=== PATIENT | male | born 1985 | race Caucasian/White ===

== ENCOUNTER 2016-11-24 10:30 | Emergency (ER) | payer OTHER ==
--- NOTE | 2016-11-24 14:36 | ED CLINICAL REPORT ---
Clinical Report - Physicians/Mid Levels [facility] [address] [place] [address] 11/24/2016 10:30 Patient: MARCO ANTONIO CERDA Time Seen: 1040; initial patient contact. Arrived- By private vehicle. In custody. Historian- patient. Referred by patient's family. HISTORY OF PRESENT ILLNESS Chief Complaint: MEDICAL CLEARANCE. This started today. Has not been sleeping. Has not been depressed. No anger, delusions, suicidal thoughts, self-injury inflicted or hallucinations. The symptoms are described as moderate. No injury is present. Additional history - patient locked himself in the bathroom. 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 Similar symptoms previously: None. Recent medical care: Not recently seen/assessed. REVIEW OF SYSTEMS No headache or skin rash. All systems otherwise negative, except as recorded above. PAST HISTORY See nurses notes. Allergies: No Known Drug Allergy. SOCIAL HISTORY Never smoker. History of drug use. No alcohol use. Has social support. Has place to stay. ADDITIONAL NOTES The nursing notes have been reviewed. PHYSICAL EXAM Vital Signs: 11/24/2016 10:35 BP: 143/93. HR: 115. RR: 16. O2 saturation: 98%. Temp: 97.4 F. Oxygen saturation normal. Appearance: Alert. No acute distress. Appearance is normal. (calm, cooperative, pleasant, well groomed). Eyes: Pupils equal, round and reactive to light. Neck: Normal inspection. Neck supple. CVS: Normal heart rate and rhythm. Heart sounds normal. Respiratory: Breath sounds normal. Chest nontender. Abdomen: Soft and nontender. Back: No tenderness. Skin: Skin warm and dry. Normal skin color. Normal skin turgor. Extremities: Extremities exhibit normal ROM. No lower extremity edema. Psych / Neuro: Oriented X 3. Mood and affect normal. Speech normal. Cognition normal. Thought process and content normal. Insight and judgement normal. Cranial nerves normal (as tested). No cerebellar findings. No motor deficit. LABS, X-RAYS, AND EKG Laboratory Tests: UA-Culture if indicated: (DANIEL: 11/24/2016 10:48) ( MsgRcvd 11/24/2016 11:13) Final results Test Result Flag Units (Reference) URINE COLOR YELLOW URINE APPEARANCE CLEAR URINE GLUCOSE NEGATIVE (NEGATIVE) URINE BILIRUBIN NEGATIVE (NEGATIVE) URINE KETONE NEGATIVE (NEGATIVE) URINE SPECIFIC GRAVITY 1.020 (1.010-1.030) URINE PH 6.0 (5.0-8.0) URINE PROTEIN NEGATIVE (NEGATIVE) URINE UROBILINOGEN 0.2 EU/dL (0.2-1.0) URINE NITRITE NEGATIVE (NEGATIVE) URINE BLOOD NEGATIVE (NEGATIVE) URINE LEUK ESTERASE NEGATIVE (NEGATIVE) URINE RBC NONE SEEN rbc/hpf (0-1) URINE WBC NONE SEEN wbc/hpf (0-1) URINE EPITHELIAL CELLS RARE EPI/hpf (0-5) URINE BACTERIA NONE SEEN (NONE SEEN) URINE COMMENT CULT NOT INDICATED 1+ MUCOUS STRANDSURINE CULTURES ARE SET-UP BASED ON THE FOLLOWING CRITERIA:POSITIVE NITRITEPOSITIVE LEUKOCYTE ESTERASEGREATER THAN 10 WHITE BLOOD CELLSMODERATE (2+) OR GREATER BACTERIA CBC w Diff: (DANIEL: 11/24/2016 10:55) ( [facility] 11/24/2016 11:14) Final results Test Result Flag Units (Reference) WHITE BLOOD COUNT 9.8 K/uL (4.5-11.5) RED BLOOD COUNT 5.02 M/uL (4.50-5.90) HEMOGLOBIN 14.4 gm/dL (13.5-17.5) HEMATOCRIT 43.7 % (41.0-53.0) MEAN CELL VOLUME 87 fL (80-100) MEAN CORPUSCULAR HGB 29 pg (26-34) MEAN CORPUSCULAR HGB CONC 33 g/dL (31-37) RED CELL DISTRIBUTION WIDTH 14.3 % (11.6-14.8) PLATELET COUNT 431 H K/uL (150-400) NEUTROPHIL % 57.0 % (50-75) LYMPH % 34.7 % (25-40) MONO % 5.4 % (3-14) EOSINOPHIL % 2.0 % (0-4) BASOPHIL % 0.9 % (0-2) Urine Drug Screen: (DANIEL: 11/24/2016 10:48) ( [facility] 11/24/2016 11:12) Final results Test Result Flag Units (Reference) AMPHETAMINE/METHAMPHETAMINE NEGATIVE (NEGATIVE) BARBITURATE NEGATIVE (NEGATIVE) BENZODIAZEPINE NEGATIVE (NEGATIVE) CANNABINOID NEGATIVE (NEGATIVE) COCAINE NEGATIVE (NEGATIVE) ECSTASY POSITIVE H (NEGATIVE) METHADONE NEGATIVE (NEGATIVE) OPIATE NEGATIVE (NEGATIVE) The urine drug screen is a qualitative screening test fordrug overdose and abuse. All screen results should beconsidered as presumptive.Drugs screened for are as follows:BenzodiazepinesCocaineAmphetamines/MetamphetaminesTHC (Tetrahydrocannabinol)OpiatesBarbituratesEcstasyMethadonePositive results are unconfirmed. For confirmation, notifythe lab for the specimen to be sent to the reference lab.All confirmations must be performed by a differentmethodology.The ingestion of natural herbal and plant productscontaining Ephedra/Ephedra metabolites can produce in urineone or more substances capable of cross reacting withamphetamine/methamphetamine immunoassays. These testsprovide a preliminary result only. A more specificalternative chemical method must be used to obtain aconfirmed analytical result. Salicylate Level: (DANIEL: 11/24/2016 10:55) ( MsgRcvd 11/24/2016 11:27) Final results Test Result Flag Units (Reference) SALICYLATE <2.8 L mg/dL (2.8-20) CMP: (DANIEL: 11/24/2016 10:55) ( MsgRcvd 11/24/2016 11:36) Final results Test Result Flag Units (Reference) GLUCOSE 93 mg/dL (70-110) BUN 16 mg/dL (7-18) CREATININE 0.9 mg/dL (0.6-1.3) Estimated GFR >60 mL/min Estimated GFR- >60 mL/min Note: Persistent reduction over 3 months in eGFR<60 mL/min/1.73 m2 defines CKD. Patients with eGFR values>=60 mL/min/1.73 m2 may also have CKD if evidence ofpersistent proteinuria. Additional information may be foundat www.kidney.org. SODIUM 140 mmol/L (136-145) POTASSIUM 4.2 mmol/L (3.5-5.1) CHLORIDE 105 mmol/L (98-107) CARBON DIOXIDE 29 mmol/L (21-32) CALCIUM 8.9 mg/dL (8.5-10.1) TOTAL PROTEIN 7.6 g/dL (6.4-8.2) ALBUMIN 3.7 g/dL (3.3-5.0) BILIRUBIN, TOTAL 0.2 mg/dL (0.0-1.0) ALKALINE PHOSPHATASE 100 U/L (46-116) AST (SGOT) 14 L U/L (15-37) ALT (SGPT) 27 U/L (12-78) ACETAMINOPHEN < 2 L ug/mL (10-30) . PROGRESS AND PROCEDURES Course of Care: the patient is a pleasant 31-year-old male presenting for evaluation of medical clearance. Patient reports no suicidal ideation homicidal ideation or delusions/hallucinations. Patient is sitting in the bed in no acute distress. Patient does not appear to be a danger to himself or others. Collateral information was obtained from the police department. Apparently patient had threatened himself per family members. This is concerning and patient will need to be monitored in the hospital and have the crisis team come out to see him. Laboratory studies for medical clearance has been obtained. Patient is agreeable to the treatment and plan. Patient was offered food and drink while here in the emergency department. Work up has also been ordered. Patient is tolerating by mouth well. No other concerns noted at this time. patient cleared from a medical standpoint from the emergency department. Patient continues to be resting in bed in no acute distress. Crisis counselor had evaluated the patient and felt in patient treatment would be the best option. Patient is currently voluntary. Patient however was not pleased with the result of the evaluation however explain to the patient this was all for his own benefit and help. Patient is agreeable to the treatment plan. Prior to patient's departure from the emergency department he was noted to be resting in bed in no acute distress. Informed written consent obtained for transport. Discussed the patient is workup here in the emergency department including diagnosis, and plan of care. Patient is stable for psychiatric treatment and evaluation. Disposition: Discharged. Condition: good. CLINICAL IMPRESSION Adjustment disorder with depressed mood. Suicidal ideation (acute). (Electronically signed by Ilan Anderson Dr. 11/26/2016 4:48)
--- NOTE | 2016-11-24 14:37 | ED ORDER SUMMARY ---
..... Patient: MARCO ANTONIO CERDA OrderSheet [facility] VisitID: [id number] [place] [address] 31y, M Registration Date/Time: 11/24/2016 ORDER SHEET Weight: 77.1 kg (stated) Allergies: No Known Drug Allergy GENERAL ORDERS: CBC w Diff Urgent (10:51 11/24/2016 Maria Luisa Madison) (Ack 10:52 KHoerner) (10:57 KHoerner) CMP Urgent (10:51 11/24/2016 Maria Luisa Madison) (Ack 10:52 LAURENoerner) (10:57 KHoerner) UA-Culture if indicated Urgent (10:51 11/24/2016 Maria Luisa Madison) (Ack 10:52 KHoerner) (10:54 DMamychal R.N.) Urine Drug Screen Urgent (10:51 11/24/2016 Maria Luisa Madison) (Ack 10:52 KHoerner) (10:55 DMamychal R.N.) Salicylate Level Urgent (10:51 11/24/2016 Maria Luisa Madison) (Ack 10:52 KHoerner) (10:57 KHoerner) Acetaminophen Level Urgent (10:51 11/24/2016 Maria Luisa Madison) (Ack 10:52 LAURENoerner) (10:57 KHoerner) Breathalyzer (10:11/24/2016 Maria Luisa Madison) (10:52 KHoerner) MEDICATION ORDERS: IV FLUIDS: ORDER SHEET NOTES: [Electronically signed by Vicky Rodriguez R.N. (18:14 11/24/2016)] [Electronically signed by Ilan Anderson Dr. (04:48 11/26/2016)] [Electronically locked/signed by Vicky Rodriguez R.N. (18:14 11/24/2016)]
--- NOTE | 2016-11-24 14:37 | ED NURSING NOTES ---
Clinical Report - Nurses [facility] [address] [place] [address] 11/24/2016 10:30 [id number] TRI[facility] Triage time 10:35. Acuity: LEVEL 4. Chief Complaint: DEPRESSION, ANXIETY and BIZARRE BEHAVIOR and (withdrawing from Meth). Alert. --10:41 Vicky Rodriguez R.N. 10:35 11/24/16. BP: 143/93. HR: 115. RR: 16. O2 saturation: 98%. Temp: 97.4 F. Pain level now 0/10. --10:41 Vicky Rodriguez R.N. Weight: 77.1 kg stated. Height/Length: 71 inches Per Patient. BMI: 23.7. --10:41 Vicky Rodriguez R.N. Allergies No Known Drug Allergy. --13:03 Damaris Segal R.N. History Historian: patient. Arrived in police custody. Primary physician (none). This is a recurrent problem. ( Brought by police as he barricaded himself in the bathroom as his dad told him he was calling police. Pt said he did it because he didn't want to go to long-term). 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 PAST MEDICAL HX: Immunizations: status is unknown. SOCIAL HX: Never smoker. Occasional alcohol use. History of drug use: methamphetamines. (stopped taking Suboxone). --10:41 Vicky Rodriguez R.N. PROBLEMS: MRSA Infection. Cellulitis. Dental Pain. Pharyngitis. Tonsillitis. Substance Abuse. Anxiety Reaction. Narcotic Withdrawal. Ankylosing Spondylitis. Rheumatoid Arthritis. Immunizations. --13:05 Damaris Segal R.N. ADDITIONAL SURGERIES: Tonsillectomy. --13:05 Damaris Segal R.N. PHYSICAL ASSESSMENT GENERAL / NEURO / PSYCH: Alert. Oriented X 4. Speech within normal limits. Good eye contact. RESPIRATORY: Respirations not labored. SKIN: Skin is pale. Skin is warm and dry. --10:41 Vicky Rodriguez R.N. NURSING PROGRESS NOTES Patient gowned. Suicide precautions initiated. --10:42 Vicky Rodriguez R.N. Checked patient name and birthdate: patient confirmed. Instructions provided to collect clean catch urine and patient verbalized understanding urine collected with return of yellow-colored clear urine; sample sent to lab for urinalysis, culture and drug screen. Specimen labeled in the presence of the patient. --11:03 Phill Murray ER Tech1 ( pt voided 200 out in urinal). --11:04 Phill Murray ER Tech1 Patient ID band checked for patient name and birthdate: patient confirmed. Blood samples drawn from the left antecubital space by tech per protocol ; labeled in presence of the patient and sent to lab: rainbow set and red, green, purple and blue top. ( breathalyzer- .000). --11:12 Isidra Collins ER Tech1 Patient waiting for social work. ( Awaiting call back from PAT team for further eval). --11:44 Vicky Rodriguez R.N. The patient reports no complaints and he is sleeping. SKIN: Skin color within normal limits. --12:58 Vicky Rodriguez R.N. ( Call placed again to Mental health and no clinition available until after 2200 today. the team is attempting to do a phone eval and awaiting a return call.). --13:34 Vicky Rodriguez R.N. ( [place] called back and request transfer to their facility to be evaluated further, arrangements being made. Pt upset however has agreed to go.). GENERAL / NEURO / PSYCH: The patient reports anxiety. SKIN: Skin color within normal limits. --14:31 Vicky Rodriguez R.N. 14:26 11/24/16. BP: 123/77. HR: 78. RR: 16. O2 saturation: 99%. Pain level now 0/10. --14:31 Vicky Rodriguez R.N. DISPOSITION / DISCHARGE Condition at departure: unchanged and stable. The patient left the Emergency Department via ambulance. Transferred to [facility]. ( Transferring to [place] per arrangements. Report to [place] on [facility]. Food and fluids offered to pt.). --15:02 Vicky Rodriguez R.N. 14:49 11/24/16. BP: 123/78. HR: 80. RR: 16. O2 saturation: 98%. Pain level now 0/10. --15:02 Vicky Rodriguez R.N. Departure time: 15:02. --15:02 Vicky Rodriguez R.N. Locked/Released at 11/24/2016 18:14 by Vicky Rodriguez R.N.
--- NOTE | 2016-11-24 14:37 | ED NURSING NOTES ---
Clinical Report - Nurses [facility] [address] [place] [address] 11/24/2016 10:30 [id number] Triage time 10:35. Acuity: LEVEL 4. Chief Complaint: DEPRESSION, ANXIETY and BIZARRE BEHAVIOR and (withdrawing from Meth). Alert. --10:41 Vicky Rodriguez R.N. 10:35 11/24/16. BP: 143/93. HR: 115. RR: 16. O2 saturation: 98%. Temp: 97.4 F. Pain level now 0/10. --10:41 Vicky Rodriguez R.N. Weight: 77.1 kg stated. Height/Length: 71 inches Per Patient. BMI: 23.7. --10:41 Vicky Rodriguez R.N. Allergies No Known Drug Allergy. --13:03 Damaris Segal R.N. History Historian: patient. Arrived in police custody. Primary physician (none). This is a recurrent problem. ( Brought by police as he barricaded himself in the bathroom as his dad told him he was calling police. Pt said he did it because he didn't want to go to penitentiary). 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 PAST MEDICAL HX: Immunizations: status is unknown. SOCIAL HX: Never smoker. Occasional alcohol use. History of drug use: methamphetamines. (stopped taking Suboxone). --10:41 Vicky Rodriguez R.N. PROBLEMS: MRSA Infection. Cellulitis. Dental Pain. Pharyngitis. Tonsillitis. Substance Abuse. Anxiety Reaction. Narcotic Withdrawal. Ankylosing Spondylitis. Rheumatoid Arthritis. Immunizations. --13:05 Damaris Segal R.N. ADDITIONAL SURGERIES: Tonsillectomy. --13:05 Damaris Segal R.N. PHYSICAL ASSESSMENT GENERAL / NEURO / PSYCH: Alert. Oriented X 4. Speech within normal limits. Good eye contact. RESPIRATORY: Respirations not labored. SKIN: Skin is pale. Skin is warm and dry. --10:41 Vicky Rodriguez R.N. NURSING PROGRESS NOTES Patient gowned. Suicide precautions initiated. --10:42 Vicky Rodriguez R.N. Checked patient name and birthdate: patient confirmed. Instructions provided to collect clean catch urine and patient verbalized understanding urine collected with return of yellow-colored clear urine; sample sent to lab for urinalysis, culture and drug screen. Specimen labeled in the presence of the patient. --11:03 Phill Murray ER Tech1 ( pt voided 200 out in urinal). --11:04 Phill Murray ER Tech1 Patient ID band checked for patient name and birthdate: patient confirmed. Blood samples drawn from the left antecubital space by tech per protocol ; labeled in presence of the patient and sent to lab: rainbow set and red, green, purple and blue top. ( breathalyzer- .000). --11:12 Isidra Collins ER Tech1 Patient waiting for social work. ( Awaiting call back from PAT team for further eval). --11:44 Vicky Rodriguez R.N. The patient reports no complaints and he is sleeping. SKIN: Skin color within normal limits. --12:58 Vicky Rodriguez R.N. ( Call placed again to Mental health and no clinition available until after 2200 today. the team is attempting to do a phone eval and awaiting a return call.). --13:34 Vicky Rodriguez R.N. ( [place] called back and request transfer to their facility to be evaluated further, arrangements being made. Pt upset however has agreed to go.). GENERAL / NEURO / PSYCH: The patient reports anxiety. SKIN: Skin color within normal limits. --14:31 Vicky Rodriguez R.N. 14:26 11/24/16. BP: 123/77. HR: 78. RR: 16. O2 saturation: 99%. Pain level now 0/10. --14:31 Vicky Rodriguez R.N. DISPOSITION / DISCHARGE Condition at departure: unchanged and stable. The patient left the Emergency Department via ambulance. Transferred to [facility]. ( Transferring to [place] per arrangements. Report to [place] on [facility] ambulance. Food and fluids offered to pt.). --15:02 Vicky Rodriguez R.N. 14:49 11/24/16. BP: 123/78. HR: 80. RR: 16. O2 saturation: 98%. Pain level now 0/10. --15:02 Vicky Rodriguez R.N. Departure time: 15:02. --15:02 Vicky Rodriguez R.N. Locked/Released at 11/24/2016 18:14 by Vicky Rodriguez R.N.
--- NOTE | 2016-11-24 14:37 | ED ORDER SUMMARY ---
..... Patient: MARCO ANTONIO CERDA OrderSheet [facility] VisitID: [id number] [place] [address] 31y, M Registration Date/Time: 11/24/2016 ORDER SHEET Weight: 77.1 kg (stated) Allergies: No Known Drug Allergy GENERAL ORDERS: CBC w Diff Urgent (10:51 11/24/2016 Maria Luisa Madison) (Ack 10:52 KHoerner) (10:57 KHoerner) CMP Urgent (10:51 11/24/2016 Maria Luisa Madison) (Ack 10:52 LAURENoerner) (10:57 KHoerner) UA-Culture if indicated Urgent (10:51 11/24/2016 Maria Luisa Madison) (Ack 10:52 KHoerner) (10:54 DMamychal R.N.) Urine Drug Screen Urgent (10:51 11/24/2016 Maria Luisa Madison) (Ack 10:52 KHoerner) (10:55 DMamychal R.N.) Salicylate Level Urgent (10:51 11/24/2016 Maria Luisa Madison) (Ack 10:52 KHoerner) (10:57 KHoerner) Acetaminophen Level Urgent (10:51 11/24/2016 Maria Luisa Madison) (Ack 10:52 LAURENoerner) (10:57 KHoerner) Breathalyzer (10:11/24/2016 Maria Luisa Madison) (10:52 KHoerner) MEDICATION ORDERS: IV FLUIDS: ORDER SHEET NOTES: [Electronically signed by Vicky Rodriguez R.N. (18:14 11/24/2016)] [Electronically signed by Ilan Anderson Dr. (04:48 11/26/2016)] [Electronically locked/signed by Vicky Rodriguez R.N. (18:14 11/24/2016)]
--- NOTE | 2016-11-26 04:48 | ED DISCHARGE INSTRUCTIONS ---
Patient: MARCO ANTONIO CERDA General Instructions [facility] VisitID: [id number] [address] [place] [address] 31y, M Registration Date/Time: 11/24/2016 Adjustment disorder with depressed mood. Suicidal ideation (acute). (Electronically signed by Ilan Anderson Dr. 11/26/2016 4:48)
--- NOTE | 2016-11-26 04:48 | ED MAR SUMMARY ---
..... Medication Administration Record [facility] [address] [place], [place] [id number] Patient: MARCO ANTONIO CERDA Visit ID: [id number] 31y, M Weight: 77.1 kg Height/Length: 71 in BMI: 23.7 ALLERGIES: No Known Drug Allergy
--- NOTE | 2016-11-26 04:48 | ED DISCHARGE INSTRUCTIONS ---
Patient: MARCO ANTONIO CERDA General Instructions [facility] VisitID: [id number] [address] [place] [address] 31y, M Registration Date/Time: 11/24/2016 Adjustment disorder with depressed mood. Suicidal ideation (acute). (Electronically signed by Ilan Anderson Dr. 11/26/2016 4:48)
--- NOTE | 2016-11-26 04:48 | ED MED RECONCILIATION SUMMARY ---
Patient: MARCO ANTONIO CERDA Medication Reconciliation Report [facility] VisitID: [id number] [address] [place] [address] 31y, M Registration Date/Time: 11/24/2016 Weight: 77.1 kg Height/Length: 71 in. BMI: 23.7 ALLERGIES: No Known Drug Allergy The patient's Home Medications are listed below: Not obtained. The source(s) of the original Home Medication information: Not obtained. The following Medications were given to the patient in the Emergency Department: None. The following Medications were prescribed to the patient: None.
--- NOTE | 2016-11-26 04:48 | ED MED RECONCILIATION SUMMARY ---
Patient: MARCO ANTONIO CERDA Medication Reconciliation Report [facility] VisitID: [id number] [address] [place] [address] 31y, M Registration Date/Time: 11/24/2016 Weight: 77.1 kg Height/Length: 71 in. BMI: 23.7 ALLERGIES: No Known Drug Allergy The patient's Home Medications are listed below: Not obtained. The source(s) of the original Home Medication information: Not obtained. The following Medications were given to the patient in the Emergency Department: None. The following Medications were prescribed to the patient: None.
--- NOTE | 2016-11-26 04:48 | ED MAR SUMMARY ---
..... Medication Administration Record [facility] [address] [place] [id number] Patient: MARCO ANTONIO CERDA Visit ID: [id number] 31y, M Weight: 77.1 kg Height/Length: 71 in BMI: 23.7 ALLERGIES: No Known Drug Allergy
== END 2016-11-24 15:02 ==
LOC: ED SRH 10:30
DX: F43.21 Adjustment disorder with depressed mood (principal); R45.851 Suicidal ideations
CPT/HCPCS: 90004; 90100; 92760; 92761; 92762; 92763; 92764; 92765; 92766; 92767; 92780; 95059; 97000